=== PATIENT | female | born 1955 | race African-American/Black ===

== ENCOUNTER 2022-09-16 11:52 | Emergency (ER) | payer MEDICARE, MEDICAID ==
[~2022-09-16] VITALS: Ht 172.7 cm; Wt 100.0 kg
[2022-09-16 12:01] VITALS: BP 161/67
== END 2022-09-16 16:41 | disposition left against medical advice (07) ==
LOC: ER 11:52
DX: Z53.21 Procedure and treatment not carried out due to patient leaving prior to being seen by health care provider (principal)